=== PATIENT | female | born 1985 | race Caucasian/White ===

== ENCOUNTER 2017-08-23 20:55 | Emergency (ER) | payer OTHER ==
[~2017-08-23] VITALS: Ht 175.3 cm; Wt 50.9 kg
[~2017-08-23 20:55] MED LIST: CYCL5TAB PO; HYDR-3533 PO; PRED20 PO
[2017-08-23 21:01] VITALS: BP 118/84; PULSE 92; RESP 18; TEMP 98.4; O2SAT 100
--- NOTE | 2017-08-23 21:13 | PD ---
HPI Chief Complaint: Chest Pain Time Seen by Provider: 21:02 Travel History International Travel<30 days: No Contact w/Intl Traveler<30days: No Traveled to known affect area: No History of Present Illness HPI 31-year-old white female presents to emergency department by EMS in police custody. The patient was placed in police custody after being arrested for shoplifting. The patient then stated to PD that she was having chest pain. The patient has a history of severe rheumatoid arthritis, anemia, and sepsis. She currently takes 30 mg of MS Contin twice daily. She is not on any disease modifying drugs this time. The patient also goes on to state that she has noted increased urinary frequency and dysuria. She has had some subjective fever and chills at home for the patient. She has associated back pain which she feels is from a bladder infection. Symptoms are moderate. These have been present now for the past week. She has not seen her primary care doctor regarding these issues. Patient denies any associated shortness of breath, nausea, vomiting or diaphoresis. No history of heart disease. She does admit to tobacco, smoking methamphetamine and drinking alcohol. PFSH Past Medical History Anemia: Yes Arthritis: Yes (RA) Autoimmune Disease: Yes (PT STATES SHE HAS RA) Cancer: No Cardiovascular Problems: No Endocrine: No Genitourinary: Yes (ARF) Musculoskeletal: No Neurologic: No Psychiatric: No Reproductive: No Respiratory: No Immunizations Current: Yes ?: Unknown : 1 Para: 1 Past Surgical History Other Surgery: Yes ("CYST REMOVED FROM BEHIND LEFT EAR") Social History Alcohol Use: Yes (OCC) Tobacco Use: Yes (6 CIGS A DAY) Substance Use: Yes (CRACK) Allergies-Medications (Allergen,Severity, Reaction): Coded Allergies: *MDRO Multi-Drug Resistant Organism (Verified Allergy, Unknown, 06/24/15) MRSA Reported Meds & Prescriptions Reported Meds & Active Scripts Active Pyridium (Phenazopyridine HCl) 100 Mg Tab 100 Mg PO Q8H PRN 3 Days Macrobid (Nitrofurantoin Monoh/Nitrofur Macro) 100 Mg Cap 100 Mg PO BID 10 Days Lortab 5 mg/325 mg (Hydrocodone/Acetaminophen 5 mg/325 mg) 1 Tab 1 Tab PO Q6H PRN Deltasone (Prednisone) 20 Mg Tab 20 Mg PO Q12HR 5 Days Flexeril (Cyclobenzaprine HCl) 5 Mg Tab 5 Mg PO Q8HR PRN Review of Systems Except as stated in HPI: all other systems reviewed are Neg Physical Exam Narrative GENERAL: Well-developed, well-nourished in no apparent distress. Nontoxic appearing. Patient does appear to be under the influence of substances. HEAD: Normocephalic, atraumatic. EYES: Pupils equal round and reactive. Extraocular motions intact. No scleral icterus. No injection or drainage. ENT: Nose clear. Throat without erythema, tonsillar hypertrophy or exudate. Uvula midline. Airway patent. NECK: Trachea midline. Supple, nontender, moves head freely. No central bony tenderness or spasm. CARDIOVASCULAR: Regular rate and rhythm without murmurs, gallops, or rubs. RESPIRATORY: Clear to auscultation. Breath sounds equal bilaterally. No wheezes , rales, or rhonchi. GASTROINTESTINAL: Abdomen soft, non-tender, nondistended. No hepato-splenomegaly , or palpable masses. No guarding. 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 Chronic decreased range of motion in all extremities due to rheumatoid arthritis. Patient has intact gross sensation with intact pulses.. BACK: Nontender without deformity. No flank tenderness. NEUROLOGICAL: Awake, alert and oriented x 3 .Cranial nerves grossly intact. Motor and sensory grossly within normal limits. Normal speech. Data Data Last Documented VS Vital Signs Date Time Temp Pulse Resp B/P (MAP) Pulse Ox O2 Delivery O2 Flow Rate FiO2 08/23/17 21:01 98.4 92 18 118/84 (95) 100 Orders Orders Electrocardiogram (08/23/17 21:07) Urinalysis - C+S If Indicated (08/23/17 21:07) Ed Urine Pregnancytest Poc (08/23/17 21:07) Intermittent Catheter-Urinary (08/23/17 21:07) Urine Culture (08/23/17 22:48) Nitrofurantoin Monohyd Macrocr (Macrobid (08/23/17 23:15) Labs Laboratory Tests Test 08/23/17 22:48 Urine Color YELLOW Urine Turbidity HAZY Urine pH 6.0 Urine Specific Noti 1.012 Urine Protein NEG mg/dL Urine Glucose (UA) NEG mg/dL Urine Ketones NEG mg/dL Urine Occult Blood TRACE Urine Nitrite POS Urine Bilirubin NEG Urine Urobilinogen LESS THAN 2.0 MG/DL Urine Leukocyte Esterase MOD Urine RBC 3 /hpf Urine WBC 17 /hpf Urine Squamous Epithelial Cells 1 /hpf Urine Bacteria MANY /hpf Urine Mucus FEW /lpf Microscopic Urinalysis Comment CULTURE INDICATED [facility] Medical Decision Making Medical Screen Exam Complete: Yes Emergency Medical Condition: Yes Medical Record Reviewed: Yes Interpretation(s) Laboratory Tests Test 08/23/17 22:48 Urine Color YELLOW Urine Turbidity HAZY Urine pH 6.0 Urine Specific Noti 1.012 Urine Protein NEG mg/dL Urine Glucose (UA) NEG mg/dL Urine Ketones NEG mg/dL Urine Occult Blood TRACE Urine Nitrite POS Urine Bilirubin NEG Urine Urobilinogen LESS THAN 2.0 MG/DL Urine Leukocyte Esterase MOD Urine RBC 3 /hpf Urine WBC 17 /hpf Urine Squamous Epithelial Cells 1 /hpf Urine Bacteria MANY /hpf Urine Mucus FEW /lpf Microscopic Urinalysis Comment CULTURE INDICATED EKG: Normal sinus rhythm. No ectopy. No abnormal ST-T wave changes. Normal P- R. Normal axis. Normal QT interval. Differential Diagnosis Differential diagnoses: Substance abuse, malingering, coronary disease, UTI, pericarditis Narrative Course Patient's EKG is normal. Urine reveals a urinary tract infection. She is given Macrobid by mouth here in the ER and discharged in the custody of PD. Patient is medically cleared to go to retirement. This is noncardiac chest pain, UTI Diagnosis Primary Impression: Non-cardiac chest pain Additional Impression: UTI (urinary tract infection) Qualified Codes: N30.00 - Acute cystitis without hematuria Patient Instructions: General Instructions Additional Instructions: Rest. Increase fluids. 3 Advil every 6 hours as needed for pain. Macrobid and Pyridium. Follow-up with a primary care doctor in one week. Return to the ER for any problems. Med/Other Pt SpecificInfo: Prescription(s) given Scripts Phenazopyridine (Pyridium) 100 Mg Tab 100 MG PO Q8H Y for DYSURIA for 3 Days, #9 TAB 0 Refills Prov: Yony Burton MD 08/23/17 Nitrofurantoin Monohydrate Macrocrystals (Macrobid) 100 Mg Cap 100 MG PO BID for Infection for 10 Days, #20 CAP 0 Refills Prov: Yony Burton MD 9/29/17 Disposition: [address] [employer] Condition: Stable Michael Gao Aug 23, 2017 21:13
[2017-08-23 23:05] LABS: BACTERIA, URINE MANY /hpf; BLOOD, URINE TRACE (NEG); COMMENT (UR) CULTURE INDICATED; CULTURE IF INDICATED CULTURE INDICATED; GLUCOSE,URINE NEG (NEG); KETONE, URINE NEG (NEG); MUCUS URINE FEW /lpf (OCC); NITRITE,URINE POS (NEG); SQUAMOUS EPITHELIAL CELL URINE 1 /hpf (0-5); URINE COLOR YELLOW (YELLW/STRAW)
[2017-08-23] MEDS ORDERED: PHEN0.4T PO (23:10)
[2017-08-23] MEDS ORDERED: MACR100C2 PO (23:10)
[2017-08-23] MEDS ORDERED: NITROFURANTOIN MONOHYD MACROCR 100 MG CAP PO ONE (23:15)
--- NOTE | 2017-08-24 08:32 | EKG ---
Date Performed: 08/23/2017 Time Performed: 21:16:43 PTAGE: 31 years EKG: Sinus rhythm WITH SINUS ARRHYTHMIA NORMAL ECG NO PREVIOUS TRACING DOCTOR: Himanshu Garcia Interpretating Date/Time 08/24/2017 08:30:41
== END 2017-08-23 23:33 ==
LOC: NEPD 20:55
DX: R07.89 Other chest pain (principal); N30.00 Acute cystitis without hematuria; B96.20 Unspecified Escherichia coli [E. coli] as the cause of diseases classified elsewhere; M06.9 Rheumatoid arthritis, unspecified; D64.9 Anemia, unspecified
CPT/HCPCS: 81001; 84703; 87077; 87086; 87186; 93005; 99284